=== PATIENT | male | born 1940 | race Caucasian/White ===

== ENCOUNTER 2023-10-27 15:48 | Emergency (ER) | payer MEDICARE, OTHER, SELFPAY ==
[2023-10-27 16:15] VITALS: BP 157/83; PULSE 87; RESP 15; TEMP 37.1; O2SAT 98; BMI 28.1
[2023-10-27 17:00] LABS: Basophils # 0.1 10^3/uL (0.0-0.1); Basophils % 0.6 %; Eosinophils # 0.5 10^3/uL (0.0-0.8); Eosinophils % 6.6 %; Hematocrit 43.4 % (37-53); Lymphocytes # 1.7 10^3/uL (0.8-4.8); Mean Corpuscular HGB Conc 33.4 g/dL (30-55); Mean Corpuscular Hemoglobin 31.3 pg (27-33); Mean Corpuscular Volume 93.7 fl (82-101); Mean Platelet Volume 8.6 fL (7.4-10.4); Monocytes # 0.8 10^3/uL (0.2-0.9); Monocytes % 9.8 %; Neutrophils # 4.86 10^3/uL (1.8-7.7); Neutrophils % 61.7 %; Nucleated Red Blood Cells % 0 %; Platelet Count 223 10^3/cmm (157-399); Red Blood Count 4.63 10^6/uL (3.85-5.65); Red Cell Distribution Width 13.1 % (12.1-15.1); White Blood Count 7.87 10^3/uL (3.29-11.43)
[2023-10-27 17:20] LABS: Add Urine Microscopic? YES; Bilirubin Urine Neg (Negative); Blood Urine 3+ (Negative); Glucose Urine UA Norm (Normal); Ketones Urine 1+ (Negative); Leukocyte Esterase Urine 2+ (Negative); Nitrate Urine Positive (Negative); Protein Urine 2+ (Negative); Specific Gravity, Urine 1.025 (1.005-1.030); Urine Appearance Cloudy (CLEAR); Urine Color Other (Yellow); Urobilinogen Urine Norm (Negative); pH Urine 5 (5-7)
--- NOTE | 2023-10-27 17:20 | ED_ITS ---
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 He recently was treated with antibiotics for a bladder infection has not had any fever sweats or chills. He describes having a course of intermittent bladder infections since a month ago when he had a cystoscopy done. Onset (ago): day(s) Duration: constant Quality: burning Relieving factors: none Exacerbating factors: none Context: recent surgery Associated symptoms: Reports dysuria; Deny discharge, fevers/chills, hematuria, nausea, rash, swelling, urinary incontinence, urinary retention, mass, vomiting or other Review of Systems 2 Const: Denies: fever(s) or chills Card: Denies: chest pain Resp: Denies: dyspnea GI: Denies: abdominal pain, nausea or vomiting : Reports: dysuria, urinary frequency and difficulty starting urination; Denies: urinary urgency, urinary incontinence or hematuria Musc: Denies: neck pain or back pain Skin/Breast: Denies: rash PFSH ED 2 PFSH: Medical History (Updated 10/27/23 @ 18:00 by Abdoulaye Squires DO) Prostate CA Physical Exam 2 Const: GENERAL APPEARANCE: cooperative and comfortable O RIENTATION/CONSCIOUSNESS: Yes awake, Yes oriented to person, Yes oriented to place and Yes oriented to time HENMT: COMMON NORMALS: normocephalic, atraumatic and hearing grossly normal bilaterally HEAD & SCALP: normocephalic and atraumatic Resp: COMMON NORMALS: normal respiratory effort, No retractions, No use of accessory muscles and clear to auscultation bilaterally AUSCULTATION: clear to auscultation bilaterally Cardio: COMMON NORMALS: regular rate, regular rhythm and No murmurs present (Cardio) RATE: regular rate RHYTHM: regular rhythm GI: COMMON NORMALS: Soft to palpation and No hepatosplenomegaly present A USCULTATION: Yes normoactive bowel sounds PALPATION: Yes Soft to palpation, No Tenderness to palpation present (GI), No Guarding due to palpation present (GI) and Yes No hepatosplenomegaly present Extremity: COMMON NORMALS: normal to inspection, capillary refill normal, no clubbing, cyanosis or edema, no calf tenderness and no pedal edema Neuro: SENSORIUM/ORIENTATION: Yes oriented to person, Yes oriented to place and Yes oriented to time Skin: COMMON NORMALS: no rashes or lesions noted GENERAL SKIN EXAM: no rashes or lesions noted Course 2 Vital Signs: Vital signs: Vital Signs Temperature 98.8 F 10/27/23 16:15 Pulse Rate 78 10/27/23 17:31 Respiratory Rate 15 10/27/23 16:15 Blood Pressure 141/71 10/27/23 17:31 Pulse Oximetry 96 10/27/23 17:31 Oxygen Delivery Me thod Room Air 10/27/23 17:31 MDM - Male Medical Decision Making No leukocytosis but does have significant urinary tract infection. He recently finished antibiotic course about 5 days ago. Concerned that he likely will have a resistant bacteria he has had problems with stricture in the prostate from his previous cancer treatment I think at this point because he is planning to travel it would be best for him to leave the Jaramillo in place with a leg bag so that his bladder continues to drain regularly and he is less likely to have complications from this bladder infection or develop sepsis. Medical Records I reviewed the patient's medical records. Lab Data I reviewed the patient's lab results. 10/27/23 16:52 10/27/23 16:52 Laboratory Results WBC 7.87 10^3/uL (3.29-11.43) 10/27/23 16:52 RBC 4.63 10^6/uL (3.85-5.65) 10/27/23 16:52 Hgb 14.50 g/dL (11.27-16.99) 10/27/23 16:52 Hct 43.4 % (37-53) 10/27/23 16:52 MCV 93.7 fl (82-101) 10/27/23 16:52 MCH 31.3 pg (27-33) 10/27/23 16:52 MCHC 33.4 g/dL (30-55) 10/27/23 16:52 RDW 13.1 % (12.1-15.1) 10/27/23 16:52 Plt Count 223 10^3/cmm (157-399) 10/27/23 16:52 MPV 8.6 fL (7.4-10.4) 10/27/23 16:52 Neut % (Auto) 61.7 % 10/27/23 16:52 Lymph % (Auto) 21.0 % 10/27/23 16:52 [place] % (Auto) 9.8 % 10/27/23 16:52 Eos % (Auto) 6.6 % 10/27/23 16:52 Baso % (Auto) 0.6 % 10/27/23 16:52 Neut # (Auto) 4.86 10^3/uL (1.8-7.7) 10/27/23 16:52 Lymph # (Auto) 1.7 10^3/uL (0.8-4.8) 10/27/23 16:52 [place] # (Auto) 0.8 10^3/uL (0.2-0.9) 10/27/23 16:52 Eos # (Auto) 0.5 10^3/uL (0.0-0.8) 10/27/23 16:52 Baso # (Auto) 0.1 10^3/uL (0.0-0.1) 10/27/23 16:52 Nucleated RBC % (auto) 0 % 10/27/23 16:52 Nucleated RBCs # 0.0 /100WBC 10/27/23 16:52 Sodium 141 mmol/L (136-145) 10/27/23 16:52 Potassium 4.9 mmol/L (3.5-5.1) 10/27/23 16:52 Chloride 103 mmol/L (98-107) 10/27/23 16:52 Carbon Dioxide 26 mmol/L (22-29) 10/27/23 16:52 Anion Gap 16.9 (5-19) 10/27/23 16:52 BUN 14 mg/dL (8-23) 10/27/23 16:52 Creatinine 1.2 mg/dL (0.7-1.2) 10/27/23 16:52 GFR Calculation Not Reportable 10/27/23 16:52 Glucose 142 mg/dL (65-115) H 10/27/23 16:52 Calculated Osmolality 295 mOsm/kg (285-295) 10/27/23 16:52 Calcium 9.1 mg/dL (8.5-10.5) 10/27/23 16:52 Total Bilirubin 0.6 mg/dL (0.15-1.2) 10/27/23 16:52 AST 12 U/L (0-40) 10/27/23 16:52 ALT 16 U/L (0-41) 10/27/23 16:52 Alkaline Phosphatase 64 U/L (40-130) 10/27/23 16:52 Total Protein 7.2 g/dL (6.6-8.7) 10/27/23 16:52 Albumin 4.1 g/dL (3.5-5.2) 10/27/23 16:52 Globulin 3.1 g/dL (1.3-4.6) 10/27/23 16:52 Urine Color Other (Yellow) A 10/27/23 15:55 Urine Appearance Cloudy (CLEAR) A 10/27/23 15:55 Urine pH 5 (5-7) 10/27/23 15:55 Ur Specific [place] 1.025 (1.005-1.030) 10/27/23 15:55 Urine Protein 2+ (Negative) H 10/27/23 15:55 Urine Glucose (UA) Norm (Normal) 10/27/23 15:55 Urine Ketones 1+ (Negative) H 10/27/23 15:55 Urine Blood 3+ (Negative) H 10/27/23 15:55 Urine Nitrate Positive (Negative) H 10/27/23 15:55 Urine Bilirubin Neg (Negative) 10/27/23 15:55 Urine Urobilinogen Norm mg/dL (Negative) 10/27/23 15:55 Ur Leukocyte Esterase 2+ (Negative) H 10/27/23 15:55 Urine RBC 15-25 /hpf (0-2) H 10/27/23 15:55 Urine WBC Too numerous to cnt /hpf (0-5) H 10/27/23 15:55 Ur Squamous Epith Cells 0-4 /hpf (0-5) H 10/27/23 15:55 Amorphous Sediment Not Reportable 10/27/23 15:55 Urine Bacteria 1+ /hpf (NONE) H 10/27/23 15:55 Urine Mucus 2+ /hpf 10/27/23 15:55 No radiology studies performed this visit Discharge Plan Discharge Patient Disposition: Home Clinical Impression: Cystitis Condition: Stable Prescriptions: New cefdinir 300 mg capsule 300 mg PO BID 10 Days Qty: 20 0RF Discharge Orders: Discharge ED (Routine); Ordered 10/27/23 Ordered By: Abdoulaye Squires Discharge Diet: Usual diet Discharge Activity: Resume usual activity Patient Instructions: Opioid Safety, Pain Management Activity Restrictions/Additional Instructions: Thank you for choosing [facility] for your healthcare needs today. Please realize this is an emergency room and that we are providing you with a medical screening exam and this may not be complete and all inclusive of all the testing and or work up that you may need to determine your ailment or severity of your illness. It is very important that you follow up as instructed or that you return to the Emergency Department should you have concerns or if your condition changes or worsens in any way. You were seen today with difficulty with urination and burning with urination. Urinalysis shows significant urinary tract infection you have no elevation in white count your kidney function is normal recommend starting antibiotic twice daily. Will contact you when the culture results are back. Given your history recommend that we discharge you with a leg bag to ensure that your bladder continues to drain regularly. You should follow-up with your urologist early next week to reevaluate and they can determine how soon the Jaramillo can be removed. Coding Level of Care Code ED Business [employer] Representative for Rob Woodall
[2023-10-27 17:28] LABS: Add Urine Culture? Yes; Bacteria Urine 1+ /hpf; Mucus Urine 2+ /hpf; RBC Urine 15-25 /hpf (0-2); Squamous Epithelial Cell Urine 0-4 /hpf (0-5); WBC Urine TOO NUMEROUS TO CNT /hpf (0-5)
[2023-10-27 17:28] LABS: Alanine Aminotransferase 16 U/L (0-41); Albumin Level 4.1 g/dL (3.5-5.2); Alkaline Phosphatase 64 U/L (40-130); Anion Gap 16.9 (5-19); Aspartate Amino Transferase 12 U/L (0-40); Blood Urea Nitrogen 14 mg/dL (8-23); Calcium 9.1 mg/dL (8.5-10.5); Carbon Dioxide 26 mmol/L (22-29); Chloride 103 mmol/L (98-107); Globulin 3.1 g/dL (1.3-4.6); Glucose 142 mg/dL (65-115); Osmolality Calculated 295 mOsm/kg (285-295); Potassium 4.9 mmol/L (3.5-5.1); Sodium 141 mmol/L (136-145); Total Bilirubin 0.6 mg/dL (0.15-1.2); Total Protein 7.2 g/dL (6.6-8.7)
[2023-10-27 17:31] VITALS: BP 141/71; PULSE 78; O2SAT 96
[2023-10-27 18:36] VITALS: BP 150/71; PULSE 75; O2SAT 96
== END 2023-10-27 18:40 | disposition home or self-care (01) ==
PROVIDERS: Emergency Medicine; Emergency Provider Family Medicine
DX: N30.90 Cystitis, unspecified without hematuria (principal); Z85.46 Personal history of malignant neoplasm of prostate
CPT/HCPCS: 36415; 51702; 80053; 81001; 85025; 87077; 87086; 87186; 99283; 99291